=== PATIENT | male | born 1995 | race American Indian/Alaskan Native ===

== ENCOUNTER 2018-07-09 11:07 | Emergency (ER) | payer SELFPAY ==
[2018-07-09 12:17] VITALS: BP 124/56
[2018-07-09] MEDS ORDERED: IBUPROFEN PO ONE ×3 (12:17→12:21)
--- NOTE | 2018-07-09 12:17 | Emergency Department Report ---
Chief Complaint: Pain General Stated Complaint: MUSCLE SPASM Time Seen by Provider: 07/09/18 12:15 - HPI History of Present Illness: WAS [place] [facility] YESTERDAY BLOOD WORK NORMAL MOVED OVER WEEKEND CO NECK AND ARM PAIN PMH NONE PSH NONE RX NONE CIG PCP NONE NO TRAUMA MSE COMPLETED MSE screening note: Focused history and physical exam performed. Due to findings the following was ordered: ED Disposition for MSE Condition: Stable
== END 2018-07-09 14:01 | disposition left against medical advice (07) ==
LOC: ED 11:07
DX: M54.2 Cervicalgia (principal); Z53.21 Procedure and treatment not carried out due to patient leaving prior to being seen by health care provider